=== PATIENT | male | born 1990 | race Caucasian/White ===

== ENCOUNTER 2022-06-26 21:36 | Emergency (ER) | payer BC, OTHER ==
[2022-06-26 21:52] VITALS: BP 132/86; PULSE 84; RESP 18; TEMP 99.2; BMI 28.2
[2022-06-26] MEDS ORDERED: FAMOTIDINE 20 MG/50 ML IVPB 20 MG/50 ML MG IVPB ONE ×2 (23:38→23:46)
[2022-06-26] MEDS ORDERED: MAG HYDROX/AL HYDROX/SIMETH 30 ML UNIT-DOSE CUP PO ONE (23:38)
[2022-06-26] MEDS ORDERED: ACETAMINOPHEN 1000 MG/100 ML BAG IVPB ONE (23:38)
[2022-06-26] MEDS ORDERED: ONDANSETRON 4 MG/2 ML VIAL IVPUSH ONE (23:38)
[2022-06-26] MEDS ORDERED: ACETAMINOPHEN INJECTION 100 ML IVPB ONE (23:46)
[2022-06-26] MEDS ORDERED: ONDANSETRON 4 MG/2 ML VIAL ONE (23:46)
[2022-06-26] MEDS ORDERED: MAG HYDROX/AL HYDROX/SIMETH 30 ML UNIT-DOSE CUP ONE (23:46)
[2022-06-27 00:18] LABS: BASO % 0.2 % (0-2.0); EOS % 0.1 % (0-4.5); HEMATOCRIT 41.7 % (35.4-49); HEMOGLOBIN 14.4 GM/dL (11.7-16.9); LYMPH % 5.6 % (8-40); MCHC 34.5 g/dl (32.0-35.9); MEAN CELL VOLUME 86.9 fl (80-96); MONO % 4.4 % (3.8-10.2); NEUT % 89.7 % (42.8-82.8); PLATELET COUNT 185 10^3/uL (134-434); WHITE BLOOD COUNT 9.2 K/mm3 (4.0-10.0)
[2022-06-27 00:38] LABS: ALBUMIN 4.5 g/dl (3.4-5.0); BLOOD UREA NITROGEN 13.9 mg/dL (7-18); CALCIUM 9.3 mg/dL (8.5-10.1)
[2022-06-27 00:40] LABS: CREATININE 1.1 mg/dL (0.55-1.3)
[2022-06-27 00:42] LABS: BILIRUBIN,TOTAL 0.7 mg/dL (0.2-1); TOT PROT 7.6 g/dl (6.4-8.2)
== END 2022-06-27 02:00 | disposition home or self-care (01) ==
LOC: JER 21:36
PROC: 3E033GC Introduction of Other Therapeutic Substance into Peripheral Vein, Percutaneous Approach (ICD-10-PCS; principal; 2022-06-27)
PROC: 3E033GC Introduction of Other Therapeutic Substance into Peripheral Vein, Percutaneous Approach (ICD-10-PCS; 2022-06-27)
PROC: 3E033GC Introduction of Other Therapeutic Substance into Peripheral Vein, Percutaneous Approach (ICD-10-PCS; 2022-06-27)
DX: R11.2 Nausea with vomiting, unspecified (principal); R10.84 Generalized abdominal pain
CPT/HCPCS: 36415; 80053; 83690; 85025; 93005; 93010; 99284-25